=== PATIENT | male | born 1950 | race Caucasian/White ===

== ENCOUNTER 2024-07-12 11:46 | Outpatient (REF) | payer MEDICARE, SELFPAY ==
--- OUTSIDE RECORDS SUMMARY | 2024-07-12 11:49 | XMS_ITS | Encounter Summary ---
Author Organization [employer] Address [address] [place] [address] 7 [place] [address] Care Team Providers Care Senior C Software Engineer Name Role Phone Sheree Collazo MD Primary Care Provider [phone] Encounter Details Date Type Department Care Team ([facility] st Contact Info) Description 07/20/2022 [facility] Health Information Management [address] [place], [place] [id number] Sheree Collazo MD [address] [place], [place] [phone] Social History Tobacco Use Types Packs/Day Years Used Date Smoking Tobacco: Never Smokeless Tobacco: Never Alcohol Use Standard Drinks/Week Comments Yes 0 (1 standard drink = 0.6 oz pur e alcohol) Ocassionally Depression Answer Date Recorded Patient Health Questionnaire-2 Score 0 04/15/2022 Sex and Gender Information Value Date Recorded Sex Assigned at Male 12/20/2021 10:15 AM EDT Legal Sex Male 10:15 AM EDT Gender Identity Male 12/20/2021 10:15 AM EDT Sexual Orientation Straight 12/20/2021 10 :15 AM EDT COVID-19 Exposure Response Date Recorded In the last 10 days, have yo u been in contact with someone who was confirmed or suspected to have Coronavirus/COVID-19? No / Unsure 07/13/2022 9:25 AM EDT documented as of this encounter Plan of Treatment Not on file documented as of this encounter Visit Diagnoses Not on filedocumented in this encounter Care Teams Senior C Software Engineer Relationship Specialty Start Date End Date Sheree Collazo MD [address] [place], [place] [phone] PCP - General Family Medicine 01/06/22 documented as of this encounter
[2024-07-12 13:30] LABS: MANUAL DIFF FLAG NO
[2024-07-12 13:35] LABS: Eosinophils Absolute Auto 0.1 X10*3/uL (0.0-0.4); Eosinophils Percent Auto 1.4 % (0-4); Hematocrit 38.9 % (42.0-52.0); Hemoglobin 12.8 g/dl (14.0-18.0); Imm Gran Abs Auto 0.05 X10*3/uL (0.00-0.03); Imm Gran Pct Auto 1.2 % (0.0-0.4); Lymphocytes Absolute Auto 1.5 X10*3/uL (1.2-4.9); Lymphocytes Percent Auto 35.5 % (20-40); Mean Corpuscular HGB Conc 32.9 g/dl (31.0-36.0); Mean Corpuscular Hemoglobin 30.3 pg (27.0-33.0); Mean Corpuscular Volume 92.2 fL (80.0-98.0); Mean Platelet Volume 12.5 fL (9.4-12.4); Monocytes Absolute Auto 0.6 X10*3/uL (0.1-1.2); Monocytes Percent Auto 13.5 % (2-11); Neutrophils Percent Auto 48.4 % (45-73); Platelet Count 154 X10*3/uL (160-400); Red Blood Count 4.22 X10*6/uL (4.60-5.80); Red Cell Distribution Width 13.4 % (11.0-16.0); White Blood Count 4.1 X10*3/uL (4.8-10.8)
[2024-07-12 14:19] LABS: Alanine Aminotransferase 23 U/L (0-40); Albumin Level 4.6 g/dL (3.5-5.0); Alkaline Phosphatase 57 U/L (39-117); Anion Gap 11 (12-20); Aspartate Amino Transferase 22 U/L (5-37); Bilirubin Total 0.7 mg/dL (0.0-1.0); Blood Urea Nitrogen 9 mg/dL (9-16); Carbon Dioxide 27 mmol/L (22-29); Chloride 108 mmol/L (96-108); Estimated Glomerular Filt Rate > 60; Glucose Random 117 mg/dL (60-115); Potassium 4.5 mmol/L (3.3-5.1); Sodium 141 mmol/L (135-145); Total Protein 7.5 g/dL (6.5-8.0)
[2024-07-15 08:25] LABS: ~HepC Num1 0.13 S/CO (0.00-0.79); ~Hepatitis C Antibody Nonreactive (Nonreactive)
== END 2024-07-12 11:47 | disposition home or self-care (01) ==
LOC: HO.HHCL 11:46
PROVIDERS: Visit Provider General Practice
DX: I10 Essential (primary) hypertension (principal); E66.812 Obesity, class 2; E66.01 Morbid (severe) obesity due to excess calories; Z68.37 Body mass index [BMI] 37.0-37.9, adult
CPT/HCPCS: 36415; 80053; 85025; 86803

== ENCOUNTER 2024-08-28 09:50 | Outpatient (REF) | payer MEDICARE, SELFPAY ==
--- NOTE | ~2024-08-28 | MM_ITS ---
EXAMINATION: DXA BONE DENSITY AXIAL HISTORY: history of osteoporosis from 2011 TECHNIQUE: [employer] Dual energy absorptiometry (DEXA) of the lumbar spine, total left hip, and femoral neck was performed. COMPARISON: Comparison is made with the prior examination dated 03/18/2011. FINDINGS: The bone mineral density of the lumbar spine is 1.035 g/cm2, corresponding to a T-score of -1.5, and a Z-score of -1.6. This is indicative of osteopenia. This represents a BMD change of 11.3% compared to the prior exam. This is statistically significant. The bone mineral density of the left total hip is 0.945 g/cm2, corresponding to a T-score of -1.1, and a Z-score of -0.6. This is indicative of osteopenia. This represents a BMD change of 1.0% compared to the prior exam. This is not statistically significant. The bone mineral density of the left femoral neck is 1.062 g/cm2, corresponding to a T-score of -0.1, and a Z-score of 0.8. This is indicative of normal bone mineral density. This represents a BMD change of 10.4% compared to the prior exam. MM/XR DEXA axial skeleton IMPRESSION: Based on bone mineral density, and according to World Health Organization (WHO) criteria, the diagnosis is consistent with osteopenia. Statistically, 68% of repeat scans fall within 1 SD (+/- 0.010 g/cm2 for AP spine L1-L4) and 1 SD (+/- 0.012 g/cm2 for femur total) [employer] is a trademark of the [employer] [place] [employer], a World Health Organization (WHO) Collaborating Center. Electronically signed by: Deshawn Allen MD 08/28/2024 11:02 AM EDT
--- OUTSIDE RECORDS SUMMARY | 2024-08-28 10:24 | XMS_ITS | Encounter Summary ---
Author Organization [employer] Address [address] [place] [address] [address] [place] [address] Care Team Providers Care Flooring Professional Name Role Phone Sheree Collazo MD Primary Care Provider [phone] Encounter Details Date Type Department Care Team ([facility] st Contact Info) Description 07/20/2022 [facility] Information Management [address] [place], [place] [phone] Sheree Collazo MD [address] [place], [place] [phone] Social History Tobacco Use Types Packs/Day Years [...] on filedocumented in this encounter Care Teams Flooring Professional Relationship Specialty Start Date End Date Sheree Collazo MD [address] [place], [place] [phone] PCP - General Family Medicine 01/06/22 documented as of this encounter
--- OUTSIDE RECORDS SUMMARY | 2024-08-28 10:24 | XMS_ITS | Patient Health Record ---
Author Organization [facility] Address [address] [place] [id number] Care Team Providers Care Cryptographic Machine Operator Name Role Phone Deshawn Damon Unavailable [phone] Reason For Referral No Information Plan Of Treatment No Information
== END 2024-08-28 09:51 | disposition home or self-care (01) ==
LOC: HO.MAMMO 09:50
PROVIDERS: PCP General Practice; Visit Provider General Practice
DX: M81.0 Age-related osteoporosis without current pathological fracture (principal)
CPT/HCPCS: 77080

== ENCOUNTER → 2024-08-28 10:00 | Outpatient (BNV) | payer MEDICARE, SELFPAY | PROVIDERS: PCP General Practice; Visit Provider Radiology Diagnostic Radiology | DX: Z87.310 Personal history of (healed) osteoporosis fracture (principal) | CPT/HCPCS: 77080 ==